=== PATIENT | female | born 1985 | race Caucasian/White ===

== ENCOUNTER 2018-12-30 01:38 | Emergency (ER) | payer OTHER ==
[2018-12-30] MEDS: KETOROLAC 30 MG INJ IM (02:33)
== END 2018-12-30 03:10 | disposition home or self-care (01) ==
LOC: FTE 03:10
DX: M62.830 Muscle spasm of back (principal); M79.18 Myalgia, other site; M25.50 Pain in unspecified joint
CPT/HCPCS: 96372; 99284-25